=== PATIENT | female | born 1945 | race Two or more races ===

== ENCOUNTER 2022-09-09 08:07 | Day surgery (SDC) | payer MEDICARE ==
[~2022-09-09] VITALS: Ht 152.4 cm; Wt 59.0 kg
[2022-09-09 08:40] VITALS: BP 124/61
[2022-09-09] MEDS ORDERED: EXEM25TA5 PO (08:54)
[2022-09-09] MEDS ORDERED: PANT40TA54 PO (08:54)
[2022-09-09] MEDS ORDERED: STE5T PO (08:54)
[2022-09-09] MEDS ORDERED: IVER3TAB2 PO (08:54)
[2022-09-09] MEDS ORDERED: [UNRECOGNIZED DRUG - OTHER] PO (08:54)
[2022-09-09] MEDS ORDERED: LIDOcaine 1% 30ml preserv. free vial SQ ONE (09:15)
[2022-09-09 09:50] VITALS: BP 113/66
[2022-09-09 10:00] VITALS: BP 169/55
[2022-09-09 10:15] VITALS: BP 112/63
[2022-09-09 10:30] VITALS: BP 107/59
[2022-09-09 10:45] VITALS: BP 109/63
== END 2022-09-09 10:45 | disposition home or self-care (01) ==
LOC: SSTAY O 08:07
PROVIDERS: ATTEND Radiology Diagnostic Radiology
DX: C79.81 Secondary malignant neoplasm of breast (principal); J91.0 Malignant pleural effusion; F03.90 Unspecified dementia, unspecified severity, without behavioral disturbance, psychotic disturbance, mood disturbance, and anxiety; K21.9 Gastro-esophageal reflux disease without esophagitis; F20.0 Paranoid schizophrenia; C78.00 Secondary malignant neoplasm of unspecified lung; Z90.49 Acquired absence of other specified parts of digestive tract; Z85.3 Personal history of malignant neoplasm of breast; Z98.890 Other specified postprocedural states; Z79.899 Other long term (current) drug therapy; Z90.12 Acquired absence of left breast and nipple
CPT/HCPCS: 32555; J3490; 88305; 88341; 88342; 88360

== ENCOUNTER 2022-10-24 08:00 | Day surgery (SDC) | payer MEDICARE, SELFPAY ==
[~2022-10-24] VITALS: Ht 152.4 cm; Wt 54.3 kg
[~2022-10-24 08:00] MED LIST: PANT40TA54 PO; POTA-207 PO; STE5T PO; [UNRECOGNIZED DRUG - OTHER] PO
[2022-10-24] MEDS ORDERED: LIDOcaine 1%/PF 5ML 10 MG/ML VIAL SQ ONE (08:20)
[2022-10-24] MEDS ORDERED: POTA-207 PO (08:23)
[2022-10-24 08:27] VITALS: BP 108/60
[2022-10-24] MEDS ORDERED: LIDOcaine 1% 30ml preserv. free vial SQ STA ×2 (08:44)
[2022-10-24] MEDS ORDERED: albumin 25% 100mL bottle x 1 IV PRN (08:45)
[2022-10-24 09:45] VITALS: BP 112/56
[2022-10-24 09:49] VITALS: BP 101/81
[2022-10-24 09:56] VITALS: BP 126/62
[2022-10-24 10:11] VITALS: BP 101/57
[2022-10-24 10:25] VITALS: BP 96/58
== END 2022-10-24 10:30 | disposition home or self-care (01) ==
LOC: SSTAY O 08:00
PROVIDERS: ATTEND Radiology Vascular & Interventional Radiology
DX: J90 Pleural effusion, not elsewhere classified (principal); F03.90 Unspecified dementia, unspecified severity, without behavioral disturbance, psychotic disturbance, mood disturbance, and anxiety; K21.9 Gastro-esophageal reflux disease without esophagitis; E87.1 Hypo-osmolality and hyponatremia; F20.0 Paranoid schizophrenia; C78.00 Secondary malignant neoplasm of unspecified lung; Z85.3 Personal history of malignant neoplasm of breast; Z98.890 Other specified postprocedural states; Z90.49 Acquired absence of other specified parts of digestive tract; Z90.11 Acquired absence of right breast and nipple; Z79.899 Other long term (current) drug therapy
CPT/HCPCS: 32555; C1729; J3490

== ENCOUNTER 2022-11-24 06:21 | Day surgery (SDC) | payer MEDICARE, MEDICAID ==
[~2022-11-24] VITALS: Ht 152.4 cm; Wt 53.8 kg
[~2022-11-24 06:21] MED LIST changes: +POTA-206 PO; -POTA-207 PO; -[UNRECOGNIZED DRUG - OTHER] PO
[2022-11-24] MEDS ORDERED: LIDOcaine 1% 30ml preserv. free vial SQ STA (06:41)
[2022-11-24 06:47] VITALS: BP 116/54
[2022-11-24] MEDS ORDERED: albumin 25% 100mL bottle x 1 IV PRN (06:50)
[2022-11-24 08:15] VITALS: BP 129/75
[2022-11-24 08:30] VITALS: BP 137/76
[2022-11-24 08:45] VITALS: BP 123/60
[2022-11-24 09:00] VITALS: BP 126/68
[2022-11-24 09:15] VITALS: BP 129/70
== END 2022-11-24 09:35 | disposition home or self-care (01) ==
LOC: SSTAY O 06:21
PROVIDERS: ATTEND Radiology Vascular & Interventional Radiology
DX: J90 Pleural effusion, not elsewhere classified (principal); F03.90 Unspecified dementia, unspecified severity, without behavioral disturbance, psychotic disturbance, mood disturbance, and anxiety; K21.9 Gastro-esophageal reflux disease without esophagitis; E87.1 Hypo-osmolality and hyponatremia; F20.0 Paranoid schizophrenia; C78.00 Secondary malignant neoplasm of unspecified lung; Z85.3 Personal history of malignant neoplasm of breast; Z98.890 Other specified postprocedural states; Z90.49 Acquired absence of other specified parts of digestive tract; Z90.12 Acquired absence of left breast and nipple; Z79.899 Other long term (current) drug therapy
CPT/HCPCS: 32555; C1729; J3490

== ENCOUNTER 2022-12-19 08:50 | Day surgery (SDC) | payer MEDICARE, MEDICAID ==
[~2022-12-19] VITALS: Ht 152.4 cm; Wt 54.2 kg
[2022-12-19] MEDS ORDERED: albumin 25% 100mL bottle x 1 IV PRN (09:10)
[2022-12-19 09:14] VITALS: BP 126/62; PULSE 89; RESP 16; TEMP 97.8; O2SAT 100
[2022-12-19 09:30] VITALS: RESP 16; O2SAT 100
[2022-12-19 09:59] VITALS: BP 133/61; PULSE 124; RESP 16; O2SAT 100
[2022-12-19 10:13] VITALS: BP 121/59; PULSE 86; RESP 16; O2SAT 97
[2022-12-19 10:28] VITALS: BP 122/63; PULSE 76; RESP 16; O2SAT 94
== END 2022-12-19 10:55 | disposition home or self-care (01) ==
LOC: SSTAY O 08:50
PROVIDERS: ATTEND Radiology Vascular & Interventional Radiology
DX: J90 Pleural effusion, not elsewhere classified (principal); F03.90 Unspecified dementia, unspecified severity, without behavioral disturbance, psychotic disturbance, mood disturbance, and anxiety; K21.9 Gastro-esophageal reflux disease without esophagitis; E87.1 Hypo-osmolality and hyponatremia; F20.0 Paranoid schizophrenia; C78.00 Secondary malignant neoplasm of unspecified lung; Z85.3 Personal history of malignant neoplasm of breast; Z90.49 Acquired absence of other specified parts of digestive tract; Z98.890 Other specified postprocedural states; Z79.899 Other long term (current) drug therapy; Z90.12 Acquired absence of left breast and nipple
CPT/HCPCS: 32555; 71045; C1729; J3490

== ENCOUNTER 2022-12-26 08:21 | Day surgery (SDC) | payer MEDICARE, MEDICAID ==
[~2022-12-26] VITALS: Ht 152.4 cm; Wt 54.0 kg
[2022-12-26 08:45] VITALS: BP 138/60; PULSE 81; RESP 18; TEMP 97.5; O2SAT 99
[2022-12-26] MEDS ORDERED: albumin 25% 100mL bottle x 1 IV PRN (09:00)
[2022-12-26 09:49] VITALS: BP 150/64; PULSE 82; RESP 20; O2SAT 100
[2022-12-26 10:00] VITALS: BP 154/77; PULSE 81; RESP 16; O2SAT 100
[2022-12-26 10:15] VITALS: BP 139/71; PULSE 76; RESP 17; O2SAT 100
[2022-12-26 10:30] VITALS: BP 135/69; PULSE 74; RESP 14; O2SAT 99
[2022-12-26 10:45] VITALS: BP 137/72; PULSE 81; RESP 17; O2SAT 100
== END 2022-12-26 10:45 | disposition home or self-care (01) ==
LOC: SSTAY O 08:21
PROVIDERS: ATTEND Radiology Vascular & Interventional Radiology
DX: J90 Pleural effusion, not elsewhere classified (principal); F03.90 Unspecified dementia, unspecified severity, without behavioral disturbance, psychotic disturbance, mood disturbance, and anxiety; K21.9 Gastro-esophageal reflux disease without esophagitis; E87.1 Hypo-osmolality and hyponatremia; F20.0 Paranoid schizophrenia; C78.00 Secondary malignant neoplasm of unspecified lung; Z85.3 Personal history of malignant neoplasm of breast; Z90.49 Acquired absence of other specified parts of digestive tract; Z98.890 Other specified postprocedural states; Z90.12 Acquired absence of left breast and nipple
CPT/HCPCS: 32555; C1729; J3490

== ENCOUNTER 2023-01-02 08:06 | Day surgery (SDC) | payer MEDICARE, MEDICAID ==
[~2023-01-02] VITALS: Ht 152.4 cm; Wt 54.6 kg
[2023-01-02 08:30] VITALS: BP 140/58; PULSE 85; RESP 14; TEMP 97.5; O2SAT 99
[2023-01-02 09:30] VITALS: BP 131/71; PULSE 71; RESP 14; O2SAT 100; O2SAT 98
[2023-01-02 09:36] VITALS: BP 131/67; PULSE 96; RESP 14; RESP 15; O2SAT 100
[2023-01-02 09:51] VITALS: BP 127/69; PULSE 74; RESP 15; O2SAT 100
[2023-01-02 10:06] VITALS: BP 131/67; PULSE 72; RESP 14; O2SAT 99
== END 2023-01-02 10:10 | disposition home or self-care (01) ==
LOC: SSTAY O 08:06
PROVIDERS: ATTEND Radiology Vascular & Interventional Radiology
DX: J90 Pleural effusion, not elsewhere classified (principal); F03.90 Unspecified dementia, unspecified severity, without behavioral disturbance, psychotic disturbance, mood disturbance, and anxiety; K21.9 Gastro-esophageal reflux disease without esophagitis; E87.1 Hypo-osmolality and hyponatremia; F20.0 Paranoid schizophrenia; C78.00 Secondary malignant neoplasm of unspecified lung; Z90.12 Acquired absence of left breast and nipple; Z90.49 Acquired absence of other specified parts of digestive tract; Z98.890 Other specified postprocedural states; Z85.3 Personal history of malignant neoplasm of breast; Z79.899 Other long term (current) drug therapy
CPT/HCPCS: 32555; C1729; J3490

== ENCOUNTER 2023-01-09 08:26 | Day surgery (SDC) | payer MEDICARE, MEDICAID ==
[~2023-01-09] VITALS: Ht 152.4 cm; Wt 54.2 kg
[2023-01-09] VITALS (7 sets, daily range): BP systolic 123–137; BP diastolic 55–67; PULSE 70–81; RESP 16; TEMP 98.2; O2SAT 98–100
[2023-01-09] MEDS ORDERED: albumin 25% 100mL bottle x 1 IV PRN (08:50)
== END 2023-01-09 10:55 | disposition home or self-care (01) ==
LOC: SSTAY O 08:26
PROVIDERS: ATTEND Radiology Vascular & Interventional Radiology
DX: J90 Pleural effusion, not elsewhere classified (principal); F03.90 Unspecified dementia, unspecified severity, without behavioral disturbance, psychotic disturbance, mood disturbance, and anxiety; K21.9 Gastro-esophageal reflux disease without esophagitis; C78.00 Secondary malignant neoplasm of unspecified lung; E87.1 Hypo-osmolality and hyponatremia; F20.0 Paranoid schizophrenia; Z98.890 Other specified postprocedural states; Z90.12 Acquired absence of left breast and nipple; Z90.49 Acquired absence of other specified parts of digestive tract; Z85.3 Personal history of malignant neoplasm of breast
CPT/HCPCS: 32555; C1729; J3490

== ENCOUNTER 2023-01-16 07:42 | Day surgery (SDC) | payer MEDICARE, MEDICAID ==
[~2023-01-16] VITALS: Ht 152.4 cm; Wt 55.0 kg
[2023-01-16] MEDS ORDERED: albumin 25% 100mL bottle x 1 IV PRN (07:55)
[2023-01-16 08:00] VITALS: BP 144/65; PULSE 95; RESP 14; TEMP 98.1; O2SAT 99
[2023-01-16 08:48] VITALS: BP 111/81; PULSE 81; RESP 14; O2SAT 99
[2023-01-16 08:55] VITALS: BP 111/81; PULSE 81; RESP 12; RESP 14; O2SAT 99
[2023-01-16 09:10] VITALS: BP 118/51; PULSE 91; RESP 12; O2SAT 100
[2023-01-16 09:25] VITALS: BP 131/69; PULSE 75; RESP 14; O2SAT 100
== END 2023-01-16 09:40 | disposition home or self-care (01) ==
LOC: SSTAY O 07:42
PROVIDERS: ATTEND Radiology Diagnostic Radiology
DX: J90 Pleural effusion, not elsewhere classified (principal); F03.90 Unspecified dementia, unspecified severity, without behavioral disturbance, psychotic disturbance, mood disturbance, and anxiety; K21.9 Gastro-esophageal reflux disease without esophagitis; E87.1 Hypo-osmolality and hyponatremia; F20.0 Paranoid schizophrenia; C78.00 Secondary malignant neoplasm of unspecified lung; Z85.3 Personal history of malignant neoplasm of breast; Z90.12 Acquired absence of left breast and nipple; Z98.890 Other specified postprocedural states; Z90.49 Acquired absence of other specified parts of digestive tract; Z79.899 Other long term (current) drug therapy
CPT/HCPCS: 32555; C1729; J3490

== ENCOUNTER 2023-01-23 07:27 | Day surgery (SDC) | payer MEDICARE, MEDICAID ==
[2023-01-23] VITALS (7 sets, daily range): BP systolic 126–145; BP diastolic 67–89; PULSE 72–87; RESP 16; TEMP 98.4; O2SAT 99
[~2023-01-23] VITALS: Ht 152.4 cm; Wt 55.1 kg
[2023-01-23] MEDS ORDERED: albumin 25% 100mL bottle x 1 IV PRN (08:00)
== END 2023-01-23 10:40 | disposition home or self-care (01) ==
LOC: SSTAY O 07:27
PROVIDERS: ATTEND Radiology Vascular & Interventional Radiology
DX: J90 Pleural effusion, not elsewhere classified (principal); K21.9 Gastro-esophageal reflux disease without esophagitis; F03.90 Unspecified dementia, unspecified severity, without behavioral disturbance, psychotic disturbance, mood disturbance, and anxiety; F20.0 Paranoid schizophrenia; C78.00 Secondary malignant neoplasm of unspecified lung; E87.1 Hypo-osmolality and hyponatremia; Z85.3 Personal history of malignant neoplasm of breast; Z90.49 Acquired absence of other specified parts of digestive tract; Z98.890 Other specified postprocedural states; Z90.12 Acquired absence of left breast and nipple; Z79.899 Other long term (current) drug therapy
CPT/HCPCS: 32555; C1729; J3490

== ENCOUNTER 2023-01-30 07:14 | Day surgery (SDC) | payer MEDICARE, MEDICAID ==
[~2023-01-30] VITALS: Ht 152.4 cm; Wt 55.0 kg
[2023-01-30 07:35] VITALS: BP 121/53; PULSE 82; RESP 15; TEMP 98.1; O2SAT 99
[2023-01-30] MEDS ORDERED: albumin 25% 100mL bottle x 1 IV PRN (07:40)
[2023-01-30 08:15] VITALS: RESP 15; O2SAT 99
[2023-01-30 09:00] VITALS: BP 137/58; PULSE 97; RESP 14; O2SAT 99
[2023-01-30 09:15] VITALS: BP 129/59; PULSE 97; RESP 15; O2SAT 99
[2023-01-30 09:30] VITALS: BP 128/64; PULSE 77; RESP 14; O2SAT 98
[2023-01-30 12:21] VITALS: BP 106/68; PULSE 70; RESP 14; O2SAT 100
== END 2023-01-30 09:50 | disposition home or self-care (01) ==
LOC: SSTAY O 07:14
PROVIDERS: ATTEND Radiology Vascular & Interventional Radiology
DX: J90 Pleural effusion, not elsewhere classified (principal); F03.90 Unspecified dementia, unspecified severity, without behavioral disturbance, psychotic disturbance, mood disturbance, and anxiety; K21.9 Gastro-esophageal reflux disease without esophagitis; E87.1 Hypo-osmolality and hyponatremia; F20.0 Paranoid schizophrenia; C78.00 Secondary malignant neoplasm of unspecified lung; Z85.3 Personal history of malignant neoplasm of breast; Z90.12 Acquired absence of left breast and nipple; Z98.890 Other specified postprocedural states; Z90.49 Acquired absence of other specified parts of digestive tract; Z79.899 Other long term (current) drug therapy
CPT/HCPCS: 32555; C1729; J3490

== ENCOUNTER 2023-02-20 11:14 | Day surgery (SDC) | payer MEDICARE, MEDICAID ==
[~2023-02-20] VITALS: Ht 152.4 cm; Wt 54.6 kg
[2023-02-20 09:15] VITALS: BP 126/68; PULSE 76; RESP 16; TEMP 97.8; O2SAT 99
[2023-02-20 09:59] VITALS: BP 118/39; PULSE 76; RESP 16; O2SAT 98
[2023-02-20 10:05] VITALS: BP 118/62; PULSE 76; RESP 17; O2SAT 100
[2023-02-20 10:20] VITALS: BP 119/73; PULSE 72; RESP 16; O2SAT 97
[2023-02-20 10:35] VITALS: BP 127/81; PULSE 74; RESP 15; O2SAT 98
[~2023-02-20 11:14] MED LIST changes: +CAPE500T15 PO; +albumin 25% 100mL bottle x 1 IV PRN
== END 2023-02-20 11:15 | disposition home or self-care (01) ==
LOC: SSTAY O 11:14
PROVIDERS: ATTEND Radiology Diagnostic Radiology
DX: J90 Pleural effusion, not elsewhere classified (principal); K21.9 Gastro-esophageal reflux disease without esophagitis; F03.90 Unspecified dementia, unspecified severity, without behavioral disturbance, psychotic disturbance, mood disturbance, and anxiety; E87.1 Hypo-osmolality and hyponatremia; C78.00 Secondary malignant neoplasm of unspecified lung; F20.0 Paranoid schizophrenia; Z85.3 Personal history of malignant neoplasm of breast; Z90.12 Acquired absence of left breast and nipple; Z90.49 Acquired absence of other specified parts of digestive tract; Z98.890 Other specified postprocedural states; Z79.899 Other long term (current) drug therapy
CPT/HCPCS: 32555; C1729; J3490

== ENCOUNTER 2023-02-27 08:03 | Day surgery (SDC) | payer MEDICARE, MEDICAID ==
[~2023-02-27] VITALS: Ht 152.4 cm; Wt 54.1 kg
[~2023-02-27 08:03] MED LIST changes: -albumin 25% 100mL bottle x 1 IV PRN
[2023-02-27 08:25] VITALS: BP 138/76; PULSE 83; RESP 18; TEMP 98; O2SAT 99
[2023-02-27 09:20] VITALS: BP 140/71; PULSE 74; RESP 18; O2SAT 99
[2023-02-27 09:30] VITALS: BP 134/52; PULSE 74; RESP 18; O2SAT 92
[2023-02-27 09:36] VITALS: BP 134/52; PULSE 74; RESP 18; O2SAT 92
[2023-02-27 09:45] VITALS: BP 136/71; PULSE 72; RESP 18; O2SAT 100
[2023-02-27 10:00] VITALS: BP 139/73; PULSE 73; RESP 18; O2SAT 100
== END 2023-02-27 10:15 | disposition home or self-care (01) ==
LOC: SSTAY O 08:03
PROVIDERS: ATTEND Radiology Vascular & Interventional Radiology
DX: J90 Pleural effusion, not elsewhere classified (principal); F03.90 Unspecified dementia, unspecified severity, without behavioral disturbance, psychotic disturbance, mood disturbance, and anxiety; K21.9 Gastro-esophageal reflux disease without esophagitis; Z85.3 Personal history of malignant neoplasm of breast; E87.1 Hypo-osmolality and hyponatremia; F20.0 Paranoid schizophrenia; C78.00 Secondary malignant neoplasm of unspecified lung; Z90.49 Acquired absence of other specified parts of digestive tract; Z98.890 Other specified postprocedural states; Z90.12 Acquired absence of left breast and nipple; Z79.899 Other long term (current) drug therapy
CPT/HCPCS: 32555; C1729; J3490

== ENCOUNTER 2023-03-06 08:32 | Day surgery (SDC) | payer MEDICARE, MEDICAID ==
[~2023-03-06] VITALS: Ht 152.4 cm; Wt 53.4 kg
[~2023-03-06 08:32] MED LIST changes: -POTA-206 PO
[2023-03-06 09:09] VITALS: BP 125/76; PULSE 81; RESP 16; TEMP 98.5; O2SAT 93
[2023-03-06 10:22] VITALS: BP 124/58; PULSE 69; RESP 16; O2SAT 95
[2023-03-06 10:30] VITALS: BP 130/55; PULSE 85; RESP 16; O2SAT 95
[2023-03-06 10:45] VITALS: BP 126/36; PULSE 82; RESP 16; O2SAT 95
[2023-03-06 11:00] VITALS: BP 135/69; PULSE 76; RESP 16; O2SAT 95
[2023-03-06 11:15] VITALS: BP 130/68; PULSE 74; RESP 16; O2SAT 95
== END 2023-03-06 11:15 | disposition home or self-care (01) ==
LOC: SSTAY O 08:32
PROVIDERS: ATTEND Radiology Vascular & Interventional Radiology
DX: J90 Pleural effusion, not elsewhere classified (principal); R06.02 Shortness of breath; K21.9 Gastro-esophageal reflux disease without esophagitis; F20.0 Paranoid schizophrenia; F03.90 Unspecified dementia, unspecified severity, without behavioral disturbance, psychotic disturbance, mood disturbance, and anxiety; Z90.12 Acquired absence of left breast and nipple; Z90.49 Acquired absence of other specified parts of digestive tract; Z98.890 Other specified postprocedural states
CPT/HCPCS: 32555; C1729

== ENCOUNTER 2023-03-13 08:53 | Day surgery (SDC) | payer MEDICARE, MEDICAID ==
[~2023-03-13] VITALS: Ht 152.4 cm; Wt 53.2 kg
[2023-03-13 09:30] VITALS: RESP 15; O2SAT 95
[2023-03-13 10:45] VITALS: BP 131/72; PULSE 75; RESP 18; O2SAT 95
== END 2023-03-13 10:45 | disposition home or self-care (01) ==
LOC: SSTAY O 08:53
PROVIDERS: ATTEND Radiology Vascular & Interventional Radiology
DX: J90 Pleural effusion, not elsewhere classified (principal); K21.9 Gastro-esophageal reflux disease without esophagitis; F03.90 Unspecified dementia, unspecified severity, without behavioral disturbance, psychotic disturbance, mood disturbance, and anxiety; F20.0 Paranoid schizophrenia; Z98.890 Other specified postprocedural states; Z90.49 Acquired absence of other specified parts of digestive tract; Z90.10 Acquired absence of unspecified breast and nipple; Z79.899 Other long term (current) drug therapy
CPT/HCPCS: 32555; C1729

== ENCOUNTER 2023-03-20 07:04 | Day surgery (SDC) | payer MEDICARE, MEDICAID ==
[~2023-03-20] VITALS: Ht 152.4 cm; Wt 53.4 kg
[2023-03-20 07:27] VITALS: BP 147/76; PULSE 97; RESP 14; TEMP 98; O2SAT 97; O2SAT 99
[2023-03-20 09:00] VITALS: BP 152/72; PULSE 80; RESP 14; O2SAT 97
[2023-03-20 09:10] VITALS: BP 152/72; PULSE 80; RESP 14; O2SAT 97
[2023-03-20 09:20] VITALS: BP 141/68; PULSE 77; RESP 15; O2SAT 97
[2023-03-20 09:30] VITALS: BP 147/76; PULSE 82; RESP 15; O2SAT 98
== END 2023-03-20 09:45 | disposition home or self-care (01) ==
LOC: SSTAY O 07:04
PROVIDERS: ATTEND Radiology Vascular & Interventional Radiology
DX: J90 Pleural effusion, not elsewhere classified (principal); F03.90 Unspecified dementia, unspecified severity, without behavioral disturbance, psychotic disturbance, mood disturbance, and anxiety; K21.9 Gastro-esophageal reflux disease without esophagitis; E87.1 Hypo-osmolality and hyponatremia; C78.00 Secondary malignant neoplasm of unspecified lung; F20.0 Paranoid schizophrenia; Z85.3 Personal history of malignant neoplasm of breast; Z98.890 Other specified postprocedural states; Z90.49 Acquired absence of other specified parts of digestive tract; Z90.10 Acquired absence of unspecified breast and nipple; Z79.899 Other long term (current) drug therapy
CPT/HCPCS: 32555; C1729

== ENCOUNTER 2023-03-27 07:25 | Day surgery (SDC) | payer MEDICARE, MEDICAID ==
[~2023-03-27] VITALS: Ht 152.4 cm; Wt 53.3 kg
[2023-03-27] MEDS ORDERED: albumin 25% 100mL bottle x 1 IV PRN (08:00)
[2023-03-27 08:15] VITALS: BP 112/54; PULSE 86; RESP 16; TEMP 98.2; O2SAT 99
[2023-03-27 09:07] VITALS: BP 134/65; PULSE 98; RESP 16; O2SAT 100
[2023-03-27 09:15] VITALS: BP 138/80; PULSE 90; RESP 16; O2SAT 100; O2SAT 99
[2023-03-27 09:30] VITALS: BP 123/65; PULSE 82; RESP 16; O2SAT 100
[2023-03-27 09:45] VITALS: BP 108/61; PULSE 68; RESP 16; O2SAT 100
[2023-03-27 13:08] VITALS: RESP 16; O2SAT 99
== END 2023-03-27 10:07 | disposition home or self-care (01) ==
LOC: SSTAY O 07:25
PROVIDERS: ATTEND Radiology Vascular & Interventional Radiology
DX: J90 Pleural effusion, not elsewhere classified (principal); F03.90 Unspecified dementia, unspecified severity, without behavioral disturbance, psychotic disturbance, mood disturbance, and anxiety; K21.9 Gastro-esophageal reflux disease without esophagitis; E87.1 Hypo-osmolality and hyponatremia; F20.0 Paranoid schizophrenia; C78.00 Secondary malignant neoplasm of unspecified lung; Z98.890 Other specified postprocedural states; Z90.12 Acquired absence of left breast and nipple; Z79.899 Other long term (current) drug therapy
CPT/HCPCS: 32555; C1729

== ENCOUNTER 2023-04-03 08:33 | Day surgery (SDC) | payer MEDICARE, MEDICAID ==
[~2023-04-03] VITALS: Ht 152.4 cm; Wt 53.2 kg
[2023-04-03 08:20] VITALS: BP 132/77; PULSE 90; RESP 12; RESP 14; TEMP 98.2; O2SAT 98
[2023-04-03 09:30] VITALS: BP 132/77; PULSE 90; RESP 14; O2SAT 98
[2023-04-03 09:37] VITALS: BP 132/47; PULSE 90; RESP 12; RESP 14; O2SAT 98
[2023-04-03 09:45] VITALS: BP 122/69; PULSE 82; RESP 12; O2SAT 99
[2023-04-03 10:00] VITALS: BP 122/68; PULSE 79; RESP 12; O2SAT 99
== END 2023-04-03 10:20 | disposition home or self-care (01) ==
LOC: SSTAY O 08:33
PROVIDERS: ATTEND Radiology Vascular & Interventional Radiology
DX: J90 Pleural effusion, not elsewhere classified (principal); F03.90 Unspecified dementia, unspecified severity, without behavioral disturbance, psychotic disturbance, mood disturbance, and anxiety; K21.9 Gastro-esophageal reflux disease without esophagitis; E87.1 Hypo-osmolality and hyponatremia; F20.0 Paranoid schizophrenia; C78.00 Secondary malignant neoplasm of unspecified lung; Z90.12 Acquired absence of left breast and nipple; Z98.890 Other specified postprocedural states; Z85.3 Personal history of malignant neoplasm of breast; Z90.49 Acquired absence of other specified parts of digestive tract; Z79.899 Other long term (current) drug therapy
CPT/HCPCS: 32555; C1729

== ENCOUNTER 2023-04-08 08:33 | Day surgery (SDC) | payer MEDICARE, MEDICAID ==
[~2023-04-08] VITALS: Ht 152.4 cm; Wt 52.3 kg
[2023-04-08] VITALS (7 sets, daily range): BP systolic 115–143; BP diastolic 52–61; PULSE 81–100; RESP 18–20; TEMP 97.2; O2SAT 92–100
== END 2023-04-08 10:50 | disposition home or self-care (01) ==
LOC: SSTAY O 08:33
PROVIDERS: ATTEND Radiology Vascular & Interventional Radiology
DX: J90 Pleural effusion, not elsewhere classified (principal); F03.90 Unspecified dementia, unspecified severity, without behavioral disturbance, psychotic disturbance, mood disturbance, and anxiety; K21.9 Gastro-esophageal reflux disease without esophagitis; E87.1 Hypo-osmolality and hyponatremia; F20.0 Paranoid schizophrenia; C78.00 Secondary malignant neoplasm of unspecified lung; Z90.12 Acquired absence of left breast and nipple; Z98.890 Other specified postprocedural states; Z85.3 Personal history of malignant neoplasm of breast; Z90.49 Acquired absence of other specified parts of digestive tract; Z79.899 Other long term (current) drug therapy
CPT/HCPCS: 32555; C1729

== ENCOUNTER 2023-04-17 08:22 | Day surgery (SDC) | payer MEDICARE, MEDICAID ==
[~2023-04-17] VITALS: Ht 152.4 cm; Wt 53.3 kg
[2023-04-17 08:38] VITALS: BP 133/63; PULSE 91; RESP 12; RESP 14; TEMP 98.3; O2SAT 100
[2023-04-17 10:21] VITALS: BP 125/70; PULSE 85; RESP 12; O2SAT 100
[2023-04-17 10:35] VITALS: BP_SYST 131; BP_SYST 143; BP_DIAS 120; BP_DIAS 68; PULSE 81; PULSE 82; RESP 12; O2SAT 100; O2SAT 97
[2023-04-17 10:50] VITALS: BP 122/52; PULSE 80; RESP 12; O2SAT 96
== END 2023-04-17 11:15 | disposition home or self-care (01) ==
LOC: SSTAY O 08:22
PROVIDERS: ATTEND Radiology Vascular & Interventional Radiology
DX: J90 Pleural effusion, not elsewhere classified (principal); F03.90 Unspecified dementia, unspecified severity, without behavioral disturbance, psychotic disturbance, mood disturbance, and anxiety; K21.9 Gastro-esophageal reflux disease without esophagitis; F20.0 Paranoid schizophrenia; C78.00 Secondary malignant neoplasm of unspecified lung; E87.1 Hypo-osmolality and hyponatremia; Z85.3 Personal history of malignant neoplasm of breast; Z90.12 Acquired absence of left breast and nipple; Z92.21 Personal history of antineoplastic chemotherapy; Z98.890 Other specified postprocedural states; Z90.49 Acquired absence of other specified parts of digestive tract; Z79.899 Other long term (current) drug therapy
CPT/HCPCS: 32555; C1729

== ENCOUNTER 2023-04-24 08:43 | Day surgery (SDC) | payer MEDICARE, MEDICAID ==
[~2023-04-24] VITALS: Ht 152.4 cm; Wt 53.4 kg
[2023-04-24 09:10] VITALS: BP 136/67; PULSE 79; RESP 14; TEMP 98.1; O2SAT 97
[2023-04-24 09:55] VITALS: BP 117/55; PULSE 76; O2SAT 97
[2023-04-24 10:00] VITALS: BP 147/86; PULSE 79; RESP 14; O2SAT 99
[2023-04-24 10:15] VITALS: BP 136/68; PULSE 70; RESP 16; O2SAT 98
== END 2023-04-24 10:40 | disposition home or self-care (01) ==
LOC: SSTAY O 08:43
PROVIDERS: ATTEND Radiology Vascular & Interventional Radiology
DX: J90 Pleural effusion, not elsewhere classified (principal); F03.90 Unspecified dementia, unspecified severity, without behavioral disturbance, psychotic disturbance, mood disturbance, and anxiety; K21.9 Gastro-esophageal reflux disease without esophagitis; E87.1 Hypo-osmolality and hyponatremia; F20.0 Paranoid schizophrenia; C78.00 Secondary malignant neoplasm of unspecified lung; Z85.3 Personal history of malignant neoplasm of breast; Z98.890 Other specified postprocedural states; Z90.12 Acquired absence of left breast and nipple; Z90.49 Acquired absence of other specified parts of digestive tract; Z79.899 Other long term (current) drug therapy
CPT/HCPCS: 32555; C1729

== ENCOUNTER 2023-05-01 08:01 | Day surgery (SDC) | payer MEDICARE, MEDICAID ==
[~2023-05-01] VITALS: Ht 152.4 cm; Wt 53.3 kg
[2023-05-01 08:25] VITALS: BP 130/66; PULSE 83; RESP 12; TEMP 98; O2SAT 98
[2023-05-01] MEDS ORDERED: albumin 25% 100mL bottle x 1 IV PRN (08:25)
[2023-05-01 09:40] VITALS: BP 123/54; PULSE 87; RESP 12; O2SAT 97
[2023-05-01 09:45] VITALS: BP 108/50; PULSE 71; RESP 12; O2SAT 100; O2SAT 98
[2023-05-01 10:00] VITALS: BP 134/57; PULSE 71; RESP 12; O2SAT 100
[2023-05-01 10:15] VITALS: BP 129/68; PULSE 73; RESP 12; O2SAT 100
[2023-05-01 10:30] VITALS: BP 133/70; PULSE 71; RESP 12; O2SAT 100
== END 2023-05-01 10:40 | disposition home or self-care (01) ==
LOC: SSTAY O 08:01
PROVIDERS: ATTEND Radiology Diagnostic Radiology
DX: J90 Pleural effusion, not elsewhere classified (principal); F03.90 Unspecified dementia, unspecified severity, without behavioral disturbance, psychotic disturbance, mood disturbance, and anxiety; K21.9 Gastro-esophageal reflux disease without esophagitis; E87.1 Hypo-osmolality and hyponatremia; F20.0 Paranoid schizophrenia; C78.00 Secondary malignant neoplasm of unspecified lung; Z85.3 Personal history of malignant neoplasm of breast; Z90.12 Acquired absence of left breast and nipple; Z91.49 Other personal history of psychological trauma, not elsewhere classified; Z98.890 Other specified postprocedural states; Z79.899 Other long term (current) drug therapy
CPT/HCPCS: 32555; C1729

== ENCOUNTER 2023-05-08 09:06 | Day surgery (SDC) | payer MEDICARE, MEDICAID ==
[~2023-05-08] VITALS: Ht 152.4 cm; Wt 52.5 kg
[2023-05-08 09:30] VITALS: BP 124/77; PULSE 91; RESP 16; TEMP 97.8; O2SAT 100
[2023-05-08 10:16] VITALS: BP 140/63; PULSE 96; RESP 16; O2SAT 99
[2023-05-08 10:30] VITALS: BP 131/64; PULSE 89; RESP 16; O2SAT 99
[2023-05-08 10:33] VITALS: BP 131/64; PULSE 89; RESP 16; O2SAT 99
[2023-05-08 10:45] VITALS: BP 121/60; PULSE 80; RESP 16; O2SAT 99
== END 2023-05-08 11:01 | disposition home or self-care (01) ==
LOC: SSTAY O 09:06
PROVIDERS: ATTEND Radiology Vascular & Interventional Radiology
DX: J90 Pleural effusion, not elsewhere classified (principal); F03.90 Unspecified dementia, unspecified severity, without behavioral disturbance, psychotic disturbance, mood disturbance, and anxiety; K21.9 Gastro-esophageal reflux disease without esophagitis; E87.1 Hypo-osmolality and hyponatremia; F20.0 Paranoid schizophrenia; C78.00 Secondary malignant neoplasm of unspecified lung; Z90.12 Acquired absence of left breast and nipple; Z85.3 Personal history of malignant neoplasm of breast; Z92.21 Personal history of antineoplastic chemotherapy; Z90.49 Acquired absence of other specified parts of digestive tract; Z98.890 Other specified postprocedural states; Z79.899 Other long term (current) drug therapy
CPT/HCPCS: 32555; C1729

== ENCOUNTER 2023-05-15 08:35 | Day surgery (SDC) | payer MEDICARE, MEDICAID ==
[~2023-05-15] VITALS: Ht 152.4 cm; Wt 52.5 kg
[2023-05-15 09:00] VITALS: BP 116/59; PULSE 95; RESP 16; TEMP 97.9; O2SAT 100
[2023-05-15 09:58] VITALS: BP 120/49; PULSE 98; RESP 18; O2SAT 100
[2023-05-15 10:15] VITALS: BP 118/54; PULSE 81; RESP 16; O2SAT 99
[2023-05-15 10:30] VITALS: BP 114/55; PULSE 78; RESP 18; O2SAT 99
== END 2023-05-15 10:40 | disposition home or self-care (01) ==
LOC: SSTAY O 08:35
PROVIDERS: ATTEND Radiology Vascular & Interventional Radiology
DX: J90 Pleural effusion, not elsewhere classified (principal); F03.90 Unspecified dementia, unspecified severity, without behavioral disturbance, psychotic disturbance, mood disturbance, and anxiety; K21.9 Gastro-esophageal reflux disease without esophagitis; E87.1 Hypo-osmolality and hyponatremia; F20.0 Paranoid schizophrenia; C78.00 Secondary malignant neoplasm of unspecified lung; Z90.49 Acquired absence of other specified parts of digestive tract; Z98.890 Other specified postprocedural states; Z85.3 Personal history of malignant neoplasm of breast; Z90.12 Acquired absence of left breast and nipple; Z92.21 Personal history of antineoplastic chemotherapy; Z79.899 Other long term (current) drug therapy
CPT/HCPCS: 32555; C1729

== ENCOUNTER 2023-05-22 07:57 | Day surgery (SDC) | payer MEDICARE, MEDICAID ==
[~2023-05-22] VITALS: Ht 152.4 cm; Wt 53.1 kg
[2023-05-22 08:10] VITALS: BP 118/62; PULSE 87; RESP 18; TEMP 98.4; O2SAT 98
[2023-05-22] MEDS ORDERED: OLAN5TAB75 PO (08:15)
[2023-05-22 09:31] VITALS: BP 119/59; PULSE 83; RESP 18; O2SAT 100
[2023-05-22 09:35] VITALS: BP 111/53; PULSE 82; RESP 17; O2SAT 100
[2023-05-22 09:50] VITALS: BP 118/66; PULSE 87; RESP 16; O2SAT 100
[2023-05-22 10:05] VITALS: BP 109/60; PULSE 78; RESP 15; O2SAT 100
[2023-05-22 10:20] VITALS: BP 112/61; PULSE 81; RESP 16; O2SAT 100
== END 2023-05-22 10:22 | disposition home or self-care (01) ==
LOC: SSTAY O 07:57
PROVIDERS: ATTEND Radiology Vascular & Interventional Radiology
DX: J90 Pleural effusion, not elsewhere classified (principal); F03.90 Unspecified dementia, unspecified severity, without behavioral disturbance, psychotic disturbance, mood disturbance, and anxiety; K21.9 Gastro-esophageal reflux disease without esophagitis; E87.1 Hypo-osmolality and hyponatremia; C78.00 Secondary malignant neoplasm of unspecified lung; F20.0 Paranoid schizophrenia; Z90.49 Acquired absence of other specified parts of digestive tract; Z85.3 Personal history of malignant neoplasm of breast; Z90.12 Acquired absence of left breast and nipple; Z98.890 Other specified postprocedural states; Z79.899 Other long term (current) drug therapy
CPT/HCPCS: 32555; C1729

== ENCOUNTER 2023-06-05 08:27 | Day surgery (SDC) | payer MEDICARE, MEDICAID ==
[~2023-06-05] VITALS: Ht 152.4 cm; Wt 52.8 kg
[2023-06-05 09:25] VITALS: BP 128/77; PULSE 85; RESP 16; TEMP 98; O2SAT 96
[2023-06-05 09:35] VITALS: BP 137/86; PULSE 87; RESP 18; O2SAT 96
[2023-06-05 09:56] VITALS: BP 137/68; PULSE 92; RESP 18; O2SAT 98
[2023-06-05 10:00] VITALS: BP 131/73; PULSE 88; RESP 16; O2SAT 96
[2023-06-05 15:26] VITALS: RESP 16; O2SAT 96
== END 2023-06-05 10:37 | disposition home or self-care (01) ==
LOC: SSTAY O 08:27
PROVIDERS: ATTEND Radiology Vascular & Interventional Radiology
DX: J90 Pleural effusion, not elsewhere classified (principal); F03.90 Unspecified dementia, unspecified severity, without behavioral disturbance, psychotic disturbance, mood disturbance, and anxiety; K21.9 Gastro-esophageal reflux disease without esophagitis; F20.0 Paranoid schizophrenia; Z85.3 Personal history of malignant neoplasm of breast; Z90.49 Acquired absence of other specified parts of digestive tract; Z90.10 Acquired absence of unspecified breast and nipple; Z98.890 Other specified postprocedural states
CPT/HCPCS: 32555; C1729; J3490

== ENCOUNTER 2023-06-12 08:41 | Day surgery (SDC) | payer MEDICARE, MEDICAID ==
[~2023-06-12] VITALS: Ht 152.4 cm; Wt 52.8 kg
[2023-06-12 09:03] VITALS: BP 127/64; PULSE 94; RESP 12; TEMP 98.3; O2SAT 97
[2023-06-12] MEDS ORDERED: albumin 25% 100mL bottle x 1 IV PRN (09:10)
[2023-06-12 09:55] VITALS: BP 115/62; PULSE 87; RESP 12; O2SAT 100
[2023-06-12 10:10] VITALS: BP_SYST 115; BP_SYST 128; BP_DIAS 44; BP_DIAS 62; PULSE 87; PULSE 93; RESP 12; O2SAT 100; O2SAT 99
[2023-06-12 10:25] VITALS: BP 120/64; PULSE 83; RESP 12; O2SAT 98
[2023-06-12 10:40] VITALS: BP 119/63; PULSE 82; RESP 12; O2SAT 99
== END 2023-06-12 10:50 | disposition home or self-care (01) ==
LOC: SSTAY O 08:41
PROVIDERS: ATTEND Radiology Vascular & Interventional Radiology
DX: J90 Pleural effusion, not elsewhere classified (principal); F03.90 Unspecified dementia, unspecified severity, without behavioral disturbance, psychotic disturbance, mood disturbance, and anxiety; K21.9 Gastro-esophageal reflux disease without esophagitis; E87.1 Hypo-osmolality and hyponatremia; F20.0 Paranoid schizophrenia; C78.00 Secondary malignant neoplasm of unspecified lung; Z85.3 Personal history of malignant neoplasm of breast; Z90.12 Acquired absence of left breast and nipple; Z98.890 Other specified postprocedural states; Z90.49 Acquired absence of other specified parts of digestive tract
CPT/HCPCS: 32555; C1729

== ENCOUNTER 2023-06-19 08:26 | Day surgery (SDC) | payer MEDICARE, MEDICAID ==
[~2023-06-19] VITALS: Ht 152.4 cm; Wt 52.4 kg
[2023-06-19] MEDS ORDERED: albumin 25% 100mL bottle x 1 IV PRN (08:55)
[2023-06-19 09:04] VITALS: BP 111/58; PULSE 92; RESP 16; TEMP 97.4; O2SAT 99
[2023-06-19 09:34] VITALS: BP 113/58; PULSE 88; RESP 16; O2SAT 100
[2023-06-19 09:49] VITALS: BP_SYST 107; BP_SYST 113; BP_DIAS 58; BP_DIAS 59; PULSE 86; PULSE 88; RESP 16; O2SAT 100
[2023-06-19 10:04] VITALS: BP 119/57; PULSE 80; RESP 16
[2023-06-19 10:19] VITALS: BP 118/63; PULSE 82; RESP 16; O2SAT 98
[2023-06-19 10:34] VITALS: BP 112/58; PULSE 80; RESP 16; O2SAT 98
== END 2023-06-19 10:55 | disposition home or self-care (01) ==
LOC: SSTAY O 08:26
PROVIDERS: ATTEND Radiology Vascular & Interventional Radiology
DX: J90 Pleural effusion, not elsewhere classified (principal); Z85.3 Personal history of malignant neoplasm of breast; Z90.12 Acquired absence of left breast and nipple; F03.90 Unspecified dementia, unspecified severity, without behavioral disturbance, psychotic disturbance, mood disturbance, and anxiety; K21.9 Gastro-esophageal reflux disease without esophagitis; E87.1 Hypo-osmolality and hyponatremia; F20.0 Paranoid schizophrenia; C78.00 Secondary malignant neoplasm of unspecified lung; Z98.890 Other specified postprocedural states; Z90.49 Acquired absence of other specified parts of digestive tract; Z79.899 Other long term (current) drug therapy
CPT/HCPCS: 32555; C1729

== ENCOUNTER 2023-06-26 08:55 | Day surgery (SDC) | payer MEDICARE, MEDICAID ==
[~2023-06-26] VITALS: Ht 152.4 cm; Wt 52.8 kg
[2023-06-26] MEDS ORDERED: ONDA-104 PO (09:13)
[2023-06-26] MEDS ORDERED: PROC10TA97 PO (09:13)
[2023-06-26] MEDS ORDERED: albumin 25% 100mL bottle x 1 IV PRN (09:20)
[2023-06-26] MEDS ORDERED: CHEMOTHERAPY (09:21)
[2023-06-26 09:30] VITALS: RESP 15; O2SAT 97
== END 2023-06-26 10:24 | disposition home or self-care (01) ==
LOC: SSTAY O 08:55
PROVIDERS: ATTEND Radiology Diagnostic Radiology
DX: J90 Pleural effusion, not elsewhere classified (principal); F03.90 Unspecified dementia, unspecified severity, without behavioral disturbance, psychotic disturbance, mood disturbance, and anxiety; K21.9 Gastro-esophageal reflux disease without esophagitis; E87.1 Hypo-osmolality and hyponatremia; F20.0 Paranoid schizophrenia; Z85.3 Personal history of malignant neoplasm of breast; C78.00 Secondary malignant neoplasm of unspecified lung; Z98.890 Other specified postprocedural states; Z90.49 Acquired absence of other specified parts of digestive tract; Z90.12 Acquired absence of left breast and nipple; Z79.899 Other long term (current) drug therapy
CPT/HCPCS: 32555; C1729

== ENCOUNTER 2023-07-03 08:22 | Day surgery (SDC) | payer MEDICARE, MEDICAID ==
[~2023-07-03] VITALS: Ht 152.4 cm; Wt 52.4 kg
[~2023-07-03 08:22] MED LIST changes: -CAPE500T15 PO; +CHEMOTHERAPY; +ONDA-104 PO; +PROC10TA97 PO
[2023-07-03 08:47] VITALS: BP 131/69; PULSE 94; RESP 15; TEMP 98; O2SAT 99
[2023-07-03] MEDS ORDERED: albumin 25% 100mL bottle x 1 IV PRN (09:00)
[2023-07-03 09:59] VITALS: RESP 15; O2SAT 96
[2023-07-03 10:14] VITALS: BP 127/71; PULSE 88; RESP 15; O2SAT 99
[2023-07-03 10:30] VITALS: BP_SYST 133; BP_SYST 136; BP_DIAS 70; BP_DIAS 73; PULSE 89; PULSE 92; RESP 14; RESP 15; O2SAT 97; O2SAT 99
[2023-07-03 10:45] VITALS: BP 131/68; PULSE 88; RESP 14; O2SAT 98
[2023-07-03 11:00] VITALS: BP 135/70; PULSE 89; RESP 15; O2SAT 97
== END 2023-07-03 11:10 | disposition home or self-care (01) ==
LOC: SSTAY O 08:22
PROVIDERS: ATTEND Radiology Vascular & Interventional Radiology
DX: J90 Pleural effusion, not elsewhere classified (principal); R06.02 Shortness of breath; K21.9 Gastro-esophageal reflux disease without esophagitis; F03.90 Unspecified dementia, unspecified severity, without behavioral disturbance, psychotic disturbance, mood disturbance, and anxiety; F20.0 Paranoid schizophrenia; Z85.3 Personal history of malignant neoplasm of breast; Z90.10 Acquired absence of unspecified breast and nipple; Z90.49 Acquired absence of other specified parts of digestive tract; Z98.890 Other specified postprocedural states
CPT/HCPCS: 32555; C1729